=== PATIENT | male | born 1955 | race Two or more races ===

== ENCOUNTER 2023-07-14 05:13 | Day surgery (SDC) | payer OTHER, BC ==
[2023-07-12 14:03] VITALS: BMI 27.9
[2023-07-14 07:37] VITALS: RESP 18
[2023-07-14 09:18] VITALS: TEMP 97.9
[2023-07-14 13:12] VITALS: BP 114/70; PULSE 70
== END 2023-07-14 10:02 | disposition home or self-care (01) ==
LOC: JASU-ENDO 05:13
PROVIDERS: ATTEND Internal Medicine Gastroenterology
PROC: 0DB68ZX Excision of Stomach, Via Natural or Artificial Opening Endoscopic, Diagnostic (ICD-10-PCS; 2023-07-14)
PROC: 0DBH8ZX Excision of Cecum, Via Natural or Artificial Opening Endoscopic, Diagnostic (ICD-10-PCS; principal; 2023-07-14 08:30)
DX: Z12.11 Encounter for screening for malignant neoplasm of colon (principal); D12.0 Benign neoplasm of cecum; K29.50 Unspecified chronic gastritis without bleeding; Z86.010 Personal history of colon polyps; I10 Essential (primary) hypertension
CPT/HCPCS: 88305-TC; 88342-TC